=== PATIENT | male | born 1985 | race Two or more races ===

== ENCOUNTER 2018-11-30 13:10 | Emergency (ER) | payer SELFPAY ==
[~2018-11-30] VITALS: Ht 177.8 cm; Wt 81.2 kg
[2018-11-30 13:10] VITALS: BP 129/79
== END 2018-11-30 13:43 | disposition home or self-care (01) ==
LOC: ER 13:10
DX: L42 Pityriasis rosea (principal); F10.10 Alcohol abuse, uncomplicated; Y90.9 Presence of alcohol in blood, level not specified

== ENCOUNTER 2023-02-20 19:35 | Emergency (ER) | payer MEDICAID ==
[~2023-02-20] VITALS: Ht 180.3 cm; Wt 78.0 kg
[2023-02-20 20:16] VITALS: BP 119/76; TEMP 99; O2SAT 100
[2023-02-20] MEDS ORDERED: AMOX500C2 PO (20:52)
[2023-02-20] MEDS ORDERED: IBUP-1955 PO (20:52)
== END 2023-02-20 20:59 | disposition home or self-care (01) ==
LOC: ER 19:37
DX: H66.93 Otitis media, unspecified, bilateral (principal)